=== PATIENT | female | born 1955 | race American Indian/Alaskan Native ===

== ENCOUNTER 2020-05-11 14:02 | Emergency (ER) | payer BC ==
--- NOTE | 2020-05-11 17:27 | Emergency Department Report ---
Blank Doc - Documentation Documentation: 65-year-old female that presents with lower back pain s/p trip and fall. denies any other injuries or trauma. This initial assessment/diagnostic orders/clinical plan/treatment(s) is/are subject to change based on patient's health status, clinical progression and re-assessment by fellow clinical providers in the ED. Further treatment and workup at subsequent clinical providers discretion. Patient/guardians urged not to elope from the ED as their condition may be serious if not clinically assessed and managed. Initial orders include: 1- Patient sent to [facility] for further evaluation and treatment 2- xrays
--- NOTE | 2020-05-11 17:47 | XRay Report ---
PELVIS ONE VIEW INDICATION / CLINICAL INFORMATION: pain s/p fall. COMPARISON: None available. FINDINGS: BONES/JOINT(S): No acute fracture or subluxation. No significant degenerative changes. SOFT TISSUES: Calcifications projecting over the pelvis likely indicating calcified uterine fibroids. ADDITIONAL FINDINGS: None. Signer Name: Guillermo Miner MD Signed: 05/11/2020 5:43 PM Workstation Name: [id number]
--- NOTE | 2020-05-11 17:47 | XRay Report ---
LUMBAR SPINE AP AND LATERAL VIEWS INDICATION / CLINICAL INFORMATION: pain s/p fall. COMPARISON: None available. FINDINGS: BONES/JOINT(S): No acute fracture or subluxation. No significant degenerative changes. SOFT TISSUES: No significant abnormality. ADDITIONAL FINDINGS: None. Signer Name: Guillermo Miner MD Signed: 05/11/2020 5:42 PM Workstation Name: [id number]
[2020-05-11] MEDS ORDERED: IBUPROFEN 600 MG TAB PO ONE (23:55)
[2020-05-12] MEDS ORDERED: IBUPROFEN 600 MG TAB PO ONE (00:08)
[2020-05-12 05:05] VITALS: BP 129/77
--- NOTE | 2020-05-12 12:07 | Emergency Department Report ---
ED Fall HPI - General Chief Complaint: Fall Stated Complaint: FALL INJURY/RT SIDE PAIN Time Seen by Provider: 05/11/20 17:11 Source: patient Mode of arrival: Ambulatory - History of Present Illness Initial Comments: The patient was evaluated in the emergency department for symptoms described in the history of present illness. He/she was evaluated in the context of the global COVID-19 pandemic, which necessitated consideration that the patient might be at risk for infection with the virus that causes COVID-19. Institutional protocols and algorithms that pertain to the evaluation of patients at risk for COVID-19 are in a state of rapid change based on information released by regulatory bodies including the CDC and federal and state organizations. These policies and algorithms were followed during the patient's care in the emergency department. Please note that these policies, procedures and recommendations changed on a rapid basis. 65-year-old -[place] female presents to the emergency room for left side lower back pain status post fall on 05/08/2020 on black ice. Patient states when she fell she landed mostly on her left side and had difficulty getting up since she was on black ice. Patient states she did all the things of soaking and taking it easy for the next day but yesterday she woke up with pain shooting down her left leg. Patient denies any urinary or bowel incontinence. Patient reports she took Aleve for pain at night and she had ibuprofen last night while being here in the emergency room. Complaint: fall Onset/Timin -: days(s) Fall From: standing When Fall Occurred: # days [employer] (3) Fall Witnessed: yes, by bystander Place Fall Occurred: street Loss of Consciousness: none Prolonged Down Time?: no Symptoms Prior to Fall: none Location: back Severity scale (0 -10): 9 Quality: stabbing, aching Context: tripped/slipped Associated Symptoms: denies: headache, neck pain, numbness, weakness, chest paint, unable to walk, lightheaded - Related Data Previous Rx's Medication Instructions Recorded Last Taken Type Ibuprofen [Motrin 800 MG tab] 800 mg PO Q8HR PRN #30 tablet 05/12/20 Unknown Rx Allergies Allergy/AdvReac Type Severity Reaction Status Date / Time No Known Allergies Allergy Unverified 05/11/20 14:57 ED Review of Systems ROS: Stated complaint: FALL INJURY/RT SIDE PAIN Other details as noted in HPI Comment: All other systems reviewed and negative ED Past Medical Hx - Past Medical History Previous Medical History?: Yes Hx Hypertension: Yes - Surgical History Past Surgical History?: No - Social History Smoking Status: Never Smoker Substance Use Type: None - Medications Home Medications: Home Medications Medication Instructions Recorded Confirmed Last Taken Type Ibuprofen [Motrin 800 MG tab] 800 mg PO Q8HR PRN #30 tablet 05/12/20 Unknown Rx ED Physical Exam - General Limitations: No Limitations General appearance: alert, in no apparent distress - Head Head exam: Present: atraumatic, normocephalic - Eye Eye exam: Present: normal appearance - ENT ENT exam: Present: mucous membranes moist - Neck Neck exam: Present: normal inspection, full ROM - Respiratory Respiratory exam: Present: normal lung sounds bilaterally. Absent: respiratory distress, accessory muscle use - Cardiovascular Cardiovascular Exam: Present: regular rate, normal rhythm. Absent: systolic murmur, diastolic murmur, rubs, gallop - GI/Abdominal GI/Abdominal exam: Present: soft - Back Exam Back exam: Present: full ROM, muscle spasm - Expanded Back Exam Expanded Back exam: Sciatic Notch Tenderness: Left, Positive Straight Leg Raise: Left - Neurological Exam Neurological exam: Present: alert, oriented X3, normal gait - Psychiatric Psychiatric exam: Present: normal affect, normal mood - Skin Skin exam: Present: warm, dry, intact, normal color. Absent: rash ED Course Vital Signs 05/11/20 05/11/20 05/12/20 14:57 17:09 00:10 Temperature 97.7 F 97.9 F Pulse Rate 84 84 Respiratory 20 18 18 Rate Blood Pressure 154/92 154/92 O2 Sat by Pulse 96 98 Oximetry 05/12/20 04:33 Temperature Pulse Rate 71 Respiratory 16 Rate Blood Pressure 129/77 O2 Sat by Pulse Oximetry ED Medical Decision Making - Radiology Data Radiology results: report reviewed Patient: DAWNA CLARK MR#: [id number] : 1955 Acct:[id number] Age/Sex: 65 / F ADM Date: 05/11/20 Loc: ED Attending Dr: Ordering Physician: LAKSHMI CONTRERAS NP Date of Service: 05/11/20 Procedure(s): XR pelvis 1-2V Accession Number(s): [id number] cc: LAKSHMI CONTRERAS NP Fluoro Time In Minutes: PELVIS ONE VIEW INDICATION / CLINICAL INFORMATION: pain s/p fall. COMPARISON: None available. FINDINGS: BONES/JOINT(S): No acute fracture or subluxation. No significant degenerative changes. SOFT TISSUES: Calcifications projecting over the pelvis likely indicating calcified uterine fibroids. ADDITIONAL FINDINGS: None. Signer Name: Guillermo Miner MD Signed: 05/11/2020 5:43 PM Workstation Name: [id number] Transcribed By: NICHOLAS Dictated By: Guillermo Miner MD Electronically Authenticated By: Guillermo Miner MD Signed Date/Time: 05/11/201742 DD/ 41 TD/TT: [facility] [address] [place] [address] XRay Report Signed Patient: DAWNA CLARK MR#: [id number] : 1955 Acct:[id number] Age/Sex: 65 / F ADM Date: 05/11/20 Loc: ED Attending Dr: Ordering Physician: LAKSHMI CONTRERAS NP Date of Service: 05/11/20 Procedure(s): XR spine lumbosacral 2-3V Accession Number(s): [id number] cc: LAKSHMI CONTRERAS NP Fluoro Time In Minutes: LUMBAR SPINE AP AND LATERAL VIEWS INDICATION / CLINICAL INFORMATION: pain s/p fall. COMPARISON: None available. FINDINGS: BONES/JOINT(S): No acute fracture or subluxation. No significant degenerative changes. SOFT TISSUES: No significant abnormality. ADDITIONAL FINDINGS: None. Signer Name: Guillermo Miner MD Signed: 05/11/2020 5:42 PM Workstation Name: [id number] Transcribed By: NICHOLAS Dictated By: Guillermo Miner MD Electronically Authenticated By: Guillermo Miner MD Signed Date/Time: 05/11/201741 DD/ 41 TD/TT: - Medical Decision Making 65-year-old -[place] female presents to the emergency room for left side lower back pain status post fall on 05/08/2020 on black ice. Patient states when she fell she landed mostly on her left side and had difficulty getting up since she was on black ice. Patient states she did all the things of soaking and taking it easy for the next day but yesterday she woke up with pain shooting down her left leg. Patient denies any urinary or bowel incontinence. Patient reports she took Aleve for pain at night and she had ibuprofen last night while being here in the emergency room. X-rays are negative of pelvis and lumbar sacral. Patient be discharged home on ibuprofen. Diagnosed with sciatica recommend exercising. Patient verbalized understanding Critical care attestation.: If time is entered above; I have spent that time in minutes in the direct care of this critically ill patient, excluding procedure time. ED Disposition Clinical Impression: Fall with injury, Lower back pain Disposition: DC- TO HOME OR SELFCARE Is pt being admited?: No Does the pt Need Aspirin: No Condition: Stable Instructions: Understanding Your Risk for Falls, Acute Back Pain, Adult Additional Instructions: X-rays is negative. Recommend ibuprofen for pain. Prescriptions: Ibuprofen [Motrin 800 MG tab] 800 mg PO Q8HR PRN #30 tablet PRN Reason: Pain , Severe (7-10) Referrals: [facility] [Other] - 3-5 Days Forms: Work/School Release Form(ED)
== END 2020-05-12 01:25 | disposition home or self-care (01) ==
LOC: ED 14:02
DX: M54.5 Low back pain (principal); I10 Essential (primary) hypertension; Z79.899 Other long term (current) drug therapy
CPT/HCPCS: 72100; 72170; 99283